=== PATIENT | male | born 1970 | race Hispanic/Latino ===

== ENCOUNTER 2017-11-04 17:58 | Emergency (ER) | payer OTHER ==
[~2017-11-04 17:58] MED LIST: ADRENALIN ONE; CALCIUM CHLORIDE IV ONE; CORDARONE IV ONE; D50W (25GM) Syringe IV ONE; INTROPIN DRIP 800 MG/D5W 250 ML IV ONE; SODIUM BICARBONATE IV ONE
--- NOTE | 2017-11-04 19:56 | Emergency Department Report ---
ED CPR HPI - General Chief Complaint: Cardiac Arrest/CPR Stated Complaint: CARDIAC ARREST Time Seen by Provider: 11/04/17 18:28 Source: EMS Mode of arrival: Stretcher Limitations: Language Barrier - History of Present Illness Initial Comments: Patient was at work and collapsed. EMS got there within 5 minutes and CPR was already in progress by bystanders. He recieved epi x 2 en route and was in vfib twice and received two shocks in route per ACLS protocol. He was down 15 minutes total prior to arrival to ER. Later discussions with family revealed a history of uncontrolled HTN and tobacco use for which he was not recently following up with providers. Complaint: collapsed during activity Place: work Bystander CPR Performed: Yes Shock Advised: Yes Number of Shocks Delivered: 2 Downtime Before ACLS Arrival (mins): 1 (Bystanders started CPR immediately.) Initial Findings in the Field: unresponsive ROSC in the Field: No Associated Injuries: No Treatments Prior to Arrival: intubation, chest compressions, defribrillated shocks # (2), epinephrine mgs # (2) - Related Data Allergies Allergy/AdvReac Type Severity Reaction Status Date / Time Unable to Assess Allergy Unverified 11/04/17 18:12 ED Review of Systems ROS: Stated complaint: CARDIAC ARREST Other details as noted in HPI Comment: Unobtainable due to pts medical conditions ED Past Medical Hx - Past Medical History Previous Medical History?: No Hx Hypertension: Yes - Surgical History Past Surgical History?: No - Family History Family history: CAD/[place] - Social History Smoking Status: Current Every Day Smoker Substance Use Type: None ED Physical Exam - General Limitations: Other (Unresponsive) General appearance: obtunded - Head Head exam: Present: atraumatic - Eye Eye exam: Present: other (Unresponsive pupils bilaterally but equal.) Pupils: Present: other - ENT ENT exam: Present: normal exam, normal orophraynx, mucous membranes moist - Neck Neck exam: Present: normal inspection - Respiratory Respiratory exam: Present: respiratory distress (Patient bagged due to CPR in progress.), rales (bilaterally with decreased lung sounds at the bases.) - Cardiovascular Cardiovascular Exam: Present: regular rate, normal rhythm. Absent: systolic murmur, diastolic murmur, rubs, gallop - GI/Abdominal GI/Abdominal exam: Present: soft - Rectal Rectal exam: Present: deferred - Extremities Exam Extremities exam: Present: normal inspection - Back Exam Back exam: Present: normal inspection - Neurological Exam Neurological exam: Present: other (unresponsive) - Skin Skin exam: Present: dry, intact, other (cool pale skin). Absent: rash - Intubation Time Out Performed: No (1804) Sedative: none Paralytic: other (none) Laryngoscope: fiberoptic video scope Size: 4 Assist Device Used: fiberoptic device ET Tube Size: 7.5 Tube Secured Depth (cm): 22 Tube Secured Location: teeth Tube Placement Confirmation: visualized tube passing t, equal breath sounds bilat, no breath sounds over epi, confirmation by capnometr Patient Tolerated Procedure: well Intubation Complications: none, hypoxia Additional Comments: Patient started with oxygen saturation of 71% and remained pre and post intubation. ED Medical Decision Making - EKG Data -: EKG Interpreted by Me - EKG Data 11/04/17 20:05 Pulseless electrical activity. - Radiology Data Radiology results: pending, image reviewed ET tube in place above the giovani - Medical Decision Making Patient down for 15 minutes prior to getting here and we did CPR per ACLS protocol and called the code at 1823. He received bicarb x 2, epi 8 plus two by EMS, amiodarone 300mg once and calcium x 1. He received 1 shock here but remained in asytole and PEA. He has a history of tobacco abuse and uncontrolled and untreated HTN. Critical care attestation.: If time is entered above; I have spent that time in minutes in the direct care of this critically ill patient, excluding procedure time. ED Disposition Clinical Impression: Cardiac arrest due to underlying cardiac condition Disposition: DC-20 Is pt being admited?: No Does the pt Need Aspirin: No Time of Disposition: 20:12 (Discharge to Rn Radiology)
--- NOTE | 2017-11-04 20:05 | XRay Report ---
FINAL REPORT PROCEDURE: XR CHEST 1V AP TECHNIQUE: Chest radiograph anteroposterior view. CPT 03604 HISTORY: unresponsive ETT placement CPR in process COMPARISON: No prior studies are available for comparison. FINDINGS: Heart: Prominent cardiac silhouette Mediastinum/Vessels: Prominent central vessels. Lungs/Pleural space: Bilateral patchy perihilar opacities. No large effusion or pneumothorax is visible. Bony thorax: No acute osseous abnormality. Life support devices: Endotracheal tube tip is positioned 5 centimeters superior to the tejinder. IMPRESSION: Endotracheal tube tip is positioned 5 centimeters superior to the tejinder. Bilateral prominent central vessels and patchy perihilar opacities.
== END 2017-11-04 20:52 ==
LOC: ED 17:58
DX: I46.9 Cardiac arrest, cause unspecified (principal); F17.200 Nicotine dependence, unspecified, uncomplicated
CPT/HCPCS: 31500; 71045; 92950; 93005; 93010; 99285; J0171; J0282; J1265